=== PATIENT | female | born 1965 | race American Indian/Alaskan Native ===

== ENCOUNTER 2018-04-24 11:19 | Outpatient (CLI) | payer BC | END 2018-04-24 11:20 | disposition home or self-care (01) | LOC: C.PAT 11:19 | DX: N63.0 Unspecified lump in unspecified breast (principal) ==

== ENCOUNTER 2018-05-02 11:35 | Day surgery (SDC) | payer BC ==
[2018-04-24 13:12] VITALS: BMI 31.2
[2018-05-02] MEDS ORDERED: ceFAZolin 1 gm in NS 1 GM/100 ML BAG IVPB ONE (12:52)
[2018-05-02] MEDS ORDERED: Bupivacaine HCl 0.5% PF (10 ml) Inj ONE (12:53)
[2018-05-02] MEDS ORDERED: Propofol 10 mg/ml Inj (20 ML) ONE (13:32)
[2018-05-02] MEDS ORDERED: Midazolam 2 MG/2 ML VIAL ONE (13:32)
--- NOTE | 2018-05-02 14:25 | PCM.SURG1 ---
Surgeon's Initial Post Op Note - Surgeon's Notes Surgeon: Valarie Oneal Rock Crusher: none Type of Anesthesia: General LMA Anesthesia Administered By: Duglas/Chandrika Pre-Operative Diagnosis: mass left breast Operative Findings: cystic mass, no fixation to skin or chest wall Post-Operative Diagnosis: mass left breast Operation Performed: excision mass left breast Specimen/Specimens Removed: mass Estimated Blood Loss: EBL {In ML}: 2 Blood Products Given: N/A Drains Used: No Drains Post-Op Condition: Good Date of Surgery/Procedure: 05/02/18 Time of Surgery/Procedure: 14:25
[2018-05-02 14:38] VITALS: O2SAT 100
[2018-05-02] MEDS: HYDROmorphone 0.5 mg/0.5 ml ISec IVP PRN ×3 (14:40→15:30)
[2018-05-02 16:56] VITALS: BP 193/97; PULSE 73; RESP 18; TEMP 98
--- NOTE | 2018-05-02 23:21 | OP ---
PROCEDURE DATE: 05/02/2018 PREOPERATIVE DIAGNOSIS: Mass, left breast. POSTOPERATIVE DIAGNOSIS: Mass, left breast. PROCEDURE: Excision, mass, left breast. SURGEON: Krissy Oneal MD MEDICAL CLAIMS SPECIALIST: None. ANESTHESIA: General LMA. ANESTHESIOLOGIST: Kimmy Ardon CRNA. DESCRIPTION OF OPERATION: With the patient in the supine position under adequate general anesthesia, the left breast was prepped and draped in the usual sterile manner. 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 Imaging had indicated a cystic mass with focally thickened wall. The patient had a curvilinear incision just above the areola and overlying the mass and this was incised and skin flaps were raised superiorly and inferiorly. The mass was not fixed to the skin and the skin was elevated with a combination of sharp dissection and cautery as needed to maintain scrupulous hemostasis. The mass was then retracted downward and the adjacent thin fatty breast tissue was divided also with the cautery down to the chest wall, and the dissection was completed beneath and on either side of the mass. The mass was then retracted superiorly and the areolar skin flap was fully developed, and again the mass was dissected free of the adjacent breast tissue using cautery and once the mass had been freed circumferentially, it was removed. Visualized portion of the mass had a blue-tinted cystic appearance while other portions were covered with normal-appearing fatty breast tissue. The operative site was examined for hemostasis and a tongue of breast tissue was freed from the overlying skin on each of the upper and lower flaps and interposed between the skin and the chest wall using a [id number] suture of 3-0 Vicryl. When this had been completed, the skin was closed with a running subcuticular suture of 4-0 Monocryl and Dermabond. The patient tolerated the procedure well and transferred to recovery room in stable condition. Estimated blood loss for the procedure was 2 mL. Krissy Oneal MD
[2018-05-03] MEDS ORDERED: LIXISENATIDE SC SCH (10:00)
[2018-05-03] MEDS ORDERED: [UNRECOGNIZED DRUG - OTHER] SC SCH (10:00)
[2018-05-03] MEDS ORDERED: INSULIN GLARGINE SC SCH (10:00)
== END 2018-05-02 17:21 | disposition home or self-care (01) ==
LOC: C.SDS 11:35
PROVIDERS: ATTEND Specialist
DX: N63.20 Unspecified lump in the left breast, unspecified quadrant (principal)
CPT/HCPCS: 19120; 82948; J1170; J2250; J2704; J3010